=== PATIENT | male | born 1945 | race Caucasian/White ===

== ENCOUNTER 2023-03-19 19:40 | Inpatient (IN) | payer MEDICARE ==
[2023-03-19] MEDS ORDERED: Glucagon 1 MG/ML KIT IM PRN (23:11)
[2023-03-19] MEDS ORDERED: Dextrose 5% in Water 1,000 ML IV PRN (23:11)
[2023-03-19] MEDS ORDERED: Dextrose 50% Abboject 50 ML SYRINGE SLOW IVP PRN (23:11)
[2023-03-19] MEDS ORDERED: Amiodarone 150 MG, Admixture Fee 1 EACH in Dextrose 5% in Water 100 ML IVPB SCH (23:15)
[2023-03-19] MEDS ORDERED: NOREPINEPHRINE 8 MG/250 ML-D5W 250 ML IVPB SCH (23:15)
[2023-03-19 23:28] VITALS: BMI 29.4
[2023-03-19] MEDS ORDERED: Ondansetron ODT 4 MG TAB SL PRN (23:30)
[2023-03-19] MEDS ORDERED: Acetaminophen 325 MG TAB PO PRN (23:30)
[2023-03-19] MEDS ORDERED: Ondansetron PF 4 MG/2 ML Vial IVP PRN (23:30)
[2023-03-19] MEDS ORDERED: Electrolyte Replacement Protocol 1 EACH FS PRN (23:36)
[2023-03-19] MEDS: Amiodarone 450 MG in Dextrose 5% in Water 250 ML IVPB SCH (23:51)
[2023-03-19 23:59] LABS: Lactic Acid 2.1 mmol/L (0.5-2.2)
[2023-03-20 00:02] LABS: Troponin I 0.127 ng/mL (< 0.028)
[2023-03-20 00:44] LABS: BUN (Urea Nitrogen) 34 mg/dL (8.4-25.7); Calc. Creatinine Clearance 69 mL/min (70-130); Calcium 8.7 mg/dL (7.8-10.44); Chloride 101 mmol/L (98-107); Estimated GFR 58; Glucose 364 mg/dL (83-110); Potassium 4.3 mmol/L (3.5-5.1); Sodium 131 mmol/L (136-145)
[2023-03-20] MEDS ORDERED: Melatonin 3 MG TAB PO SCH (01:30)
[2023-03-20] MEDS ORDERED: Sodium Chloride 0.9% 500 ML IV SCH (01:30)
[2023-03-20] MEDS: Sodium Chloride 0.9% 1,000 ML IV SCH ×4 (01:33→23:17)
[2023-03-20 02:00] LABS: Carbon Dioxide 16 mmol/L (23-31)
[2023-03-20 02:02] LABS: Anion Gap 18 mmol/L (10-20)
[2023-03-20] MEDS: HumaLOG 300 UNITS/3 ML VIAL SC PRN ×5 (02:24→21:06)
[2023-03-20 03:17] LABS: Bacteria/HPF None Seen HPF (None Seen); Bilirubin Negative (Negative); Blood, Urine Negative (Negative); Clarity Turbid (Clear); Glucose, Urine (Dipstick) Greater than 1000 mg/dL (Negative); Ketone, Urine 10 mg/dL (Negative); Leukocyte Negative Leu/uL (Negative); Nitrite Negative (Negative); Protein, Urine (Dipstick) 10 mg/dL (Neg-Trace); RBC/HPF 0-3 HPF (0-3); Specific Gravity, Urine 1.042 (1.002-1.036); Squamous Epithelial 0-3 HPF (0-3); Urobilinogen Normal mg/dL (Less than 2); WBC/HPF 0-3 HPF (0-3); pH, Urine 5.5 (5.0-9.0)
[2023-03-20] MEDS: dilTIAZem 125 MG in Sodium Chloride 0.9% 100 ML IVPB SCH ×2 (03:17→11:31)
[2023-03-20] MEDS ORDERED: Digoxin 0.5 MG/2 ML AMP SLOW IVP SCH (04:45)
[2023-03-20 05:14] LABS: Hemoglobin A1c 7.8 % (4.0-6.0)
[2023-03-20 05:20] LABS: Lactic Acid 1.9 mmol/L (0.5-2.2)
[2023-03-20 05:24] LABS: ALT (SGPT) 38 U/L (8-55); AST (SGOT) 26 U/L (5-34); Albumin 3.4 g/dL (3.4-4.8); Alkaline Phosphatase 61 U/L (40-110); Anion Gap 14 mmol/L (10-20); BUN (Urea Nitrogen) 34 mg/dL (8.4-25.7); Calc. Creatinine Clearance 67 mL/min (70-130); Calcium 8.4 mg/dL (7.8-10.44); Carbon Dioxide 21 mmol/L (23-31); Chloride 101 mmol/L (98-107); Estimated GFR 56; Globulin 2.8 g/dL (2.4-3.5); Glucose 325 mg/dL (83-110); Magnesium 2.3 mg/dL (1.6-2.6); Potassium 4.1 mmol/L (3.5-5.1); Protein, Total 6.2 g/dL (5.8-8.1); Sodium 132 mmol/L (136-145)
[2023-03-20] MEDS ORDERED: Bupivacaine 0.25% HCL 30 ML VIAL ONE (06:34)
[2023-03-20] MEDS ORDERED: Norepinephrine 4 MG/4 ML VIAL ONE (07:01)
[2023-03-20] MEDS ORDERED: Vasopressin 20 UNITS/ML VIAL ONE (07:01)
[2023-03-20] MEDS ORDERED: fentaNYL PF 100 MCG/2 ML SYRINGE ONE (07:01)
[2023-03-20] MEDS ORDERED: Ketamine 50 MG/ML (10ML VIAL) ONE (07:03)
[2023-03-20] MEDS ORDERED: VANCOMYCIN 2 GRAM/500 ML BAG 2 GM in Premix Bag 1 BAG IVPB SCH (07:15)
[2023-03-20] MEDS: Amiodarone 450 MG in Dextrose 5% in Water 250 ML IVPB SCH ×2 (07:16→23:16)
[2023-03-20] MEDS: Cefepime 1 GM in Sodium Chloride 0.9% 100 ML IVPB SCH ×2 (07:22→20:22)
[2023-03-20] MEDS ORDERED: Rocuronium Bromide 10 MG/ML (10ML VIAL) ONE (07:30)
[2023-03-20] MEDS ORDERED: PHENYLEPHRINE-NS 100 MCG/ML 10 ML SYRINGE ONE (07:30)
[2023-03-20] MEDS ORDERED: Labetalol HCl 100 MG/20 ML VIAL ONE (07:30)
[2023-03-20] MEDS ORDERED: Albuterol HFA (OR) 200 PUFF INH ONE ×2 (07:30→08:26)
[2023-03-20] MEDS ORDERED: PROPOFOL 200 MG/20 ML VIAL ONE (07:30)
[2023-03-20] MEDS ORDERED: SUGAMMADEX SODIUM 200 MG/2 ML VIAL ONE (07:59)
[2023-03-20] MEDS ORDERED: traMADol HCl 50 MG TAB PO PRN (08:32)
[2023-03-20] MEDS ORDERED: fentaNYL 50 mcg/mL 1 mL Vial SLOW IVP PRN ×2 (08:32)
[2023-03-20] MEDS: Pantoprazole 40 MG VIAL IVP SCH (09:18)
[2023-03-20] MEDS: traMADol HCl 50 MG TAB PO PRN ×2 (14:15→22:44)
[2023-03-21 05:00] LABS: Hematocrit 30.6 % (42.0-52.0); Hemoglobin 10.1 g/dL (14.0-18.0); Mean Corpuscular Hemoglobin 33.1 pg (27.0-31.0); Mean Corpuscular Volume 100.3 fl (78.0-98.0); Mean Platelet Volume 9.3 fL (7.4-10.4); Platelet Count 267 10x3/uL (130-400); RBC Distribution Width 13.5 % (11.5-14.5); Red Blood Cell (RBC) Count 3.05 mill/uL (4.70-6.10); White Blood Cell (WBC) Count 8.4 10x3/uL (4.8-10.8)
[2023-03-21 05:28] LABS: Anion Gap 8 mmol/L (10-20); BUN (Urea Nitrogen) 21 mg/dL (8.4-25.7); Calc. Creatinine Clearance 108 mL/min (70-130); Calcium 7.9 mg/dL (7.8-10.44); Carbon Dioxide 23 mmol/L (23-31); Chloride 106 mmol/L (98-107); Estimated GFR 92; Glucose 251 mg/dL (83-110); Potassium 4.2 mmol/L (3.5-5.1); Sodium 133 mmol/L (136-145)
[2023-03-21] MEDS: HumaLOG 300 UNITS/3 ML VIAL SC PRN ×4 (07:22→21:22)
[2023-03-21] MEDS: Cefepime 1 GM in Sodium Chloride 0.9% 100 ML IVPB SCH (08:12)
[2023-03-21] MEDS: Pantoprazole 40 MG VIAL IVP SCH (08:14)
[2023-03-21] MEDS ORDERED: VANCOMYCIN 1.75 GM/500 ML BAG 1.75 GM in Premix Bag 1 BAG IVPB SCH (09:00)
[2023-03-21] MEDS ORDERED: Bisacodyl 10 MG SUPP PR PRN (12:00)
[2023-03-21] MEDS ORDERED: Mineral Oil ENEMA PR PRN (12:00)
[2023-03-21] MEDS ORDERED: Ondansetron PF 4 MG/2 ML Vial IVP PRN (12:00)
[2023-03-21] MEDS: Dronedarone HCl 400 MG TAB PO SCH (17:16)
[2023-03-21] MEDS: Amiodarone 450 MG, Admixture Fee 1 EACH in Dextrose 5% in Water 250 ML IVPB SCH (22:51)
[2023-03-21] MEDS ORDERED: Amiodarone 150 MG, Admixture Fee 1 EACH in Dextrose 5% in Water 100 ML IVPB SCH (23:00)
[2023-03-22] MEDS: HumaLOG 300 UNITS/3 ML VIAL SC PRN ×3 (06:34→17:03)
[2023-03-22 07:00] LABS: #Eosinphils 0.1 thou/uL (0.0-0.7); #Monocytes 0.6 thou/uL (0.11-0.59); #Neutrophils 4.3 thou/uL (1.40-6.50); %Basophils 0.5 % (0.0-1.0); %Eosinophils 1.1 % (0.0-10.0); %Lymphocytes 10.2 % (21.0-51.0); %Monocytes 11.1 % (0.0-10.0); %Neutrophils 76.4 % (42.0-75.0); Hematocrit 31.2 % (42.0-52.0); Hemoglobin 10.6 g/dL (14.0-18.0); Mean Corpuscular Hemoglobin 32.8 pg (27.0-31.0); Mean Corpuscular Volume 96.6 fl (78.0-98.0); Mean Platelet Volume 9.6 fL (7.4-10.4); Platelet Count 287 10x3/uL (130-400); RBC Distribution Width 13.2 % (11.5-14.5); Red Blood Cell (RBC) Count 3.23 mill/uL (4.70-6.10); White Blood Cell (WBC) Count 5.7 10x3/uL (4.8-10.8)
[2023-03-22 07:21] LABS: Anion Gap 10 mmol/L (10-20); BUN (Urea Nitrogen) 14 mg/dL (8.4-25.7); Calc. Creatinine Clearance 117 mL/min (70-130); Calcium 8.5 mg/dL (7.8-10.44); Carbon Dioxide 25 mmol/L (23-31); Chloride 104 mmol/L (98-107); Estimated GFR 94; Glucose 282 mg/dL (83-110); Potassium 4.1 mmol/L (3.5-5.1); Sodium 135 mmol/L (136-145)
[2023-03-22] MEDS: Amiodarone 450 MG, Admixture Fee 1 EACH in Dextrose 5% in Water 250 ML IVPB SCH (07:50)
[2023-03-22] MEDS: Pantoprazole 40 MG VIAL IVP SCH (08:14)
[2023-03-22] MEDS: Dronedarone HCl 400 MG TAB PO SCH (08:14)
[2023-03-22] MEDS: Milk Of Magnesia 30 ML UDCUP PO PRN (09:34)
[2023-03-22] MEDS ORDERED: Hyaluronidase, Ovine 200 UNITS/ML VIAL SC SCH (16:30)
[2023-03-22] MEDS ORDERED: Hyaluronidase, Human Recomb. 150 UNITS/ML VIAL SC SCH (16:30)
[2023-03-22] MEDS: Amiodarone 200 MG TAB PO SCH (20:30)
[2023-03-23 04:22] LABS: #Eosinphils 0.1 thou/uL (0.0-0.7); #Monocytes 0.7 thou/uL (0.11-0.59); #Neutrophils 4.5 thou/uL (1.40-6.50); %Basophils 0.6 % (0.0-1.0); %Eosinophils 2.1 % (0.0-10.0); %Lymphocytes 12.7 % (21.0-51.0); %Monocytes 11.3 % (0.0-10.0); %Neutrophils 72.8 % (42.0-75.0); Hematocrit 33.1 % (42.0-52.0); Hemoglobin 11.2 g/dL (14.0-18.0); Mean Corpuscular HGB CONC 33.8 g/dL (32.0-36.0); Mean Corpuscular Hemoglobin 32.7 pg (27.0-31.0); Mean Corpuscular Volume 96.5 fl (78.0-98.0); Mean Platelet Volume 8.9 fL (7.4-10.4); Platelet Count 285 10x3/uL (130-400); RBC Distribution Width 13.1 % (11.5-14.5); Red Blood Cell (RBC) Count 3.43 mill/uL (4.70-6.10); White Blood Cell (WBC) Count 6.2 10x3/uL (4.8-10.8)
[2023-03-23 04:41] LABS: Anion Gap 12 mmol/L (10-20); BUN (Urea Nitrogen) 13 mg/dL (8.4-25.7); Calc. Creatinine Clearance 121 mL/min (70-130); Calcium 8.7 mg/dL (7.8-10.44); Carbon Dioxide 25 mmol/L (23-31); Chloride 100 mmol/L (98-107); Estimated GFR 95; Glucose 242 mg/dL (83-110); Potassium 4.2 mmol/L (3.5-5.1); Sodium 133 mmol/L (136-145)
[2023-03-23] MEDS: HumaLOG 300 UNITS/3 ML VIAL SC PRN ×3 (06:14→18:02)
[2023-03-23] MEDS: Furosemide 40 MG/4 ML VIAL SLOW IVP SCH (08:52)
[2023-03-23] MEDS: Pantoprazole 40 MG VIAL IVP SCH (08:53)
[2023-03-23] MEDS: Empagliflozin 10 MG TAB PO SCH (08:53)
[2023-03-23] MEDS: Amiodarone 200 MG TAB PO SCH ×2 (08:53→20:51)
[2023-03-23] MEDS: Milk Of Magnesia 30 ML UDCUP PO PRN (08:58)
[2023-03-23] MEDS ORDERED: Melatonin 3 MG TAB PO PRN (10:20)
[2023-03-23] MEDS ORDERED: Acetaminophen 500 MG TAB PO PRN (22:55)
[2023-03-23] MEDS ORDERED: Acetaminophen 650 MG Suppository PR PRN (22:55)
[2023-03-23] MEDS ORDERED: Acetaminophen 325 MG TAB PO PRN (23:03)
[2023-03-24 04:49] LABS: #Eosinphils 0.2 thou/uL (0.0-0.7); #Monocytes 0.9 thou/uL (0.11-0.59); #Neutrophils 4.9 thou/uL (1.40-6.50); %Basophils 0.6 % (0.0-1.0); %Eosinophils 2.5 % (0.0-10.0); %Lymphocytes 12.2 % (21.0-51.0); %Monocytes 13.1 % (0.0-10.0); %Neutrophils 71.3 % (42.0-75.0); Hematocrit 32.3 % (42.0-52.0); Hemoglobin 11.1 g/dL (14.0-18.0); Mean Corpuscular HGB CONC 34.4 g/dL (32.0-36.0); Mean Corpuscular Hemoglobin 32.8 pg (27.0-31.0); Mean Corpuscular Volume 95.6 fl (78.0-98.0); Mean Platelet Volume 8.9 fL (7.4-10.4); Platelet Count 282 10x3/uL (130-400); RBC Distribution Width 13.1 % (11.5-14.5); Red Blood Cell (RBC) Count 3.38 mill/uL (4.70-6.10); White Blood Cell (WBC) Count 6.9 10x3/uL (4.8-10.8)
[2023-03-24 05:33] LABS: Anion Gap 12 mmol/L (10-20); BUN (Urea Nitrogen) 13 mg/dL (8.4-25.7); Calc. Creatinine Clearance 119 mL/min (70-130); Calcium 8.9 mg/dL (7.8-10.44); Carbon Dioxide 26 mmol/L (23-31); Chloride 98 mmol/L (98-107); Estimated GFR 93; Glucose 174 mg/dL (83-110); Potassium 4.1 mmol/L (3.5-5.1); Sodium 132 mmol/L (136-145)
[2023-03-24] MEDS: HumaLOG 300 UNITS/3 ML VIAL SC PRN ×2 (05:48→11:15)
[2023-03-24] MEDS: Pantoprazole 40 MG VIAL IVP SCH (09:08)
[2023-03-24] MEDS: Empagliflozin 10 MG TAB PO SCH (09:08)
[2023-03-24] MEDS: Amiodarone 200 MG TAB PO SCH (09:08)
[2023-03-24] MEDS: Furosemide 40 MG/4 ML VIAL SLOW IVP SCH (09:09)
[2023-03-24 11:15] VITALS: BP 131/67; TEMP 98.1
== END 2023-03-24 12:13 | disposition home or self-care (01) | DRG 270 ==
LOC: CCU 19:40 → 2NO 03-22 16:28
PROVIDERS: ADMIT Internal Medicine; ATTEND Internal Medicine
PROC: 0W9D0ZZ Drainage of Pericardial Cavity, Open Approach (ICD-10-PCS; principal; 2023-03-20)
PROC: 3E033XZ Introduction of Vasopressor into Peripheral Vein, Percutaneous Approach (ICD-10-PCS; 2023-03-20)
DX: I31.39 Other pericardial effusion (noninflammatory) (principal); I21.A1 Myocardial infarction type 2; R57.8 Other shock; E87.1 Hypo-osmolality and hyponatremia; E87.20 Acidosis, unspecified; N17.9 Acute kidney failure, unspecified; I48.0 Paroxysmal atrial fibrillation; Z20.822 Contact with and (suspected) exposure to COVID-19; I95.9 Hypotension, unspecified; E86.0 Dehydration; K52.9 Noninfective gastroenteritis and colitis, unspecified; E78.5 Hyperlipidemia, unspecified; Z79.01 Long term (current) use of anticoagulants; Z79.899 Other long term (current) drug therapy; Z90.49 Acquired absence of other specified parts of digestive tract; Z96.641 Presence of right artificial hip joint; D72.829 Elevated white blood cell count, unspecified; E11.65 Type 2 diabetes mellitus with hyperglycemia; Z80.9 Family history of malignant neoplasm, unspecified; Z79.84 Long term (current) use of oral hypoglycemic drugs; Z90.89 Acquired absence of other organs
CPT/HCPCS: 36415; 36416; 71045; 71260; 74177; 80048; 80053; 81001; 82010; 82805; 83036; 83605; 83690; 83735; 83880; 84145; 84443; 84484; 85025; 85027; 85610; 85730; 87070; 87205; 88112; 88305; 93005; 93010; 93306; 94660; 96361; 96365; 96366; 96374; 96375; 99292; C9113; J0282; J0692; J1160; J1815; J1940; J2405; J2704; J3010; J3370; J3473; J3490; J7030; J7050; J7070; Q9967; S0020

== ENCOUNTER 2024-04-27 12:15 | Outpatient (CLI) | payer MEDICARE ==
[2024-04-27 14:16] LABS: #Basophils 0.06 10x3/uL (0.0-0.2); %Basophils 1.2 % (0.0-1.0); %Eosinophils 5.3 % (0.0-10.0); %Lymphocytes 20.3 % (21.0-51.0); %Monocytes 9.7 % (0.0-10.0); %Neutrophils 63.3 % (42.0-75.0); Hematocrit 41.7 % (42.0-52.0); Hemoglobin 14.2 g/dL (14.0-18.0); Mean Corpuscular HGB CONC 34.1 g/dL (32.0-36.0); Mean Corpuscular Hemoglobin 32.6 pg (27.0-31.0); Mean Corpuscular Volume 95.6 fL (78.0-98.0); Mean Platelet Volume 11.2 fL (7.4-10.4); Platelet Count 202 10x3/uL (130-400); RBC Distribution Width 13.2 % (11.5-14.5); Red Blood Cell (RBC) Count 4.36 mill/uL (4.70-6.10)
[2024-04-27 14:30] LABS: INR-International Normal Ratio 1.2; PTT 31.4 sec (22.9-36.1)
[2024-04-27 14:51] LABS: Anion Gap 14 mmol/L (10-20); BUN (Urea Nitrogen) 11 mg/dL (8.4-25.7); Calc. Creatinine Clearance 0 mL/min (70-130); Calcium 9.3 mg/dL (7.8-10.44); Carbon Dioxide 24 mmol/L (23-31); Chloride 107 mmol/L (98-107); Estimated GFR 92; Glucose 197 mg/dL (83-110); Potassium 3.9 mmol/L (3.5-5.1); Sodium 141 mmol/L (136-145)
== END 2024-04-27 12:16 | disposition home or self-care (01) ==
LOC: LABBT 12:15
PROVIDERS: ATTEND Internal Medicine Cardiovascular Disease
DX: Z01.812 Encounter for preprocedural laboratory examination (principal); I47.19 Other supraventricular tachycardia
CPT/HCPCS: 80048; 85025; 85610; 85730